=== PATIENT | male | born 1945 | race Caucasian/White ===

== ENCOUNTER → 2017-05-27 | Day surgery (SDC) | payer MEDICARE, OTHER ==
--- NOTE | 2017-05-26 13:34 | Diagnostic Imaging Report ---
PROCEDURE: Frontal and lateral views of the chest. COMPARISON: Patients [facility], , CHEST 2 VIEWS, 11/10/2014, 10:20. INDICATIONS: PRE OPERATIVE CHEST X-RAY FOR BLADDER CANCER, CYSTOSCOPY FINDINGS: Lines/tubes: Stable left upper chest Port-A-Cath.. Lungs: The lungs are well inflated and clear. There is no evidence of pneumonia or pulmonary edema.. No pulmonary nodules or masses. Pleura: There is no pleural effusion or pneumothorax. Heart and mediastinum: Cardiac silhouette is unremarkable. Pulmonary vasculature is normal. Bones: No acute bony abnormality. Stable degenerative changes in the thoracic spine. IMPRESSION: 1. No acute cardiopulmonary disease.. No evidence of metastatic disease in the thorax. Wilder Kapadia M.D. Dictated by: Wilder Kapadia M.D. on 05/26/2017 at 13:43 Electronically approved by: Wilder Kapadia M.D. on 05/26/2017 at 13:43
[~2017-05-27] MED LIST: AMLODIPINE BESY10 MG PO; AMLODIPINE-ATO1 EAC1; AMLODIPINE-BEN1 EACH PO; ASPIRIN LOW DOS81 MG PO; ASPIRIN325 MG PO; ASPIRIN81 MG PO; BELLADONNA/OPIUM 60 MG SUPP PR ONE; CLOPIDOGREL75 MG PO; DEXAMETHASONE SOD PHOS INJ 4 MG/ML VIAL ONE; EPHEDRINE SULFATE INJ 50 MG/10 ML SYR ONE; FENTANYL CITRATE/PF 100MCG/2 ML INJ ONE; GENTAMICIN 80MG/NS 100 ML 200 ML IV ONE; HCTZ; HYDROCHLOROTHIA25 MG; IBUPROFEN200 M1 PO; IOPAMIDOL 610MG/1ML 300 MG/ML VIAL IV ONE; LASIX20 MG PO; LIDOCAINE HCL 2% LOCAL INJ 5 ML SDV VIAL INJ ONE; METOPROLOL TART25 MG PO; MIDAZOLAM HCL 2 MG/2 ML VIAL ONE; MULITVITAMIN; ONDANSETRON HCL INJ 2 MG/ML VIAL ONE; PRADAXA150 MG PO; PROPOFOL IV EMULSION 10 MG/ML 20 ML VIAL ONE; SEVOFLURANE INHAL SOLN 250 ML PEN BTL ONE; Z.0.AMLODIPINE BESY1 PO; Z.0.CENTRUM COMPLE1 PO; Z.1.AMLODIPINE-BEN1 PO; ZIAC1 UDTAB GT
--- NOTE | 2017-07-09 04:21 | Operative Report ---
DATE OF PROCEDURE: May 27, 2017 PREOPERATIVE DIAGNOSES 1. Bladder cancer. 2. Microhematuria. POSTOPERATIVE DIAGNOSES 1. Bladder cancer. 2. Microhematuria. OPERATIONS PERFORMED 1. Cystourethroscopy with bilateral ureteral catheterization and retrograde ureteropyelography (separate procedure performed for the microhematuria). 2. Interpretation of retrograde ureteropyelography. 3. Cystourethroscopy with directed bladder biopsies (separate procedure performed to rule out any recurrent bladder cancer). ANESTHESIA: General. COMPLICATIONS: None. CLINICAL SUMMARY: Mike Ruano Jr., is a 71-year-old man with long-standing urological history. He has had bladder cancer. This has been resected. Patient has surveillance. He has had a TURP and has voided fairly well. The patient was known to have visual abnormality on surveillance cystoscopy, and is brought for management and evaluation. He is aware of the risks of bleeding, infection, injury to adjacent structures, need for additional procedures, and elected to proceed. OPERATIVE PROCEDURE IN DETAIL: Informed consent was verified. Mike Ruano Jr., was properly identified and taken to the operating room and placed on the cystoscopy table in the supine position. Anesthesia was uneventfully begun. The patient then carefully and gently repositioned in the dorsal lithotomy position with all pressure points well-padded. His genitalia were prepared and draped in the usual sterile fashion. The 22.5-Central African cystoscope sheath with visual obturator in place was atraumatically inserted in the patient's urethra. It was guided down the unremarkable urethra past a normal sphincteric region into the prostate bed, which was relatively open, status post transurethral resection. There was some nodular regrowth of prostatic tissue. Panendoscopy of the urinary bladder revealed mild erythema where we previously noted erythema on cystoscopy along the posterior bladder wall. An 8-Central African catheter was used to cannulate each ureter and retrograde ureteropyelograms were performed. Interpretation of retrograde ureteropyelography. Contrast was instilled in a retrograde fashion bilaterally. There were no tumors. No stones and no diverticula. Unobstructed drainage was observed bilaterally fluoroscopically. Directed-bladder biopsies were performed of the erythematous area, as well as on the regions within the bladder. Bugbee electrode was utilized to fulgurate the biopsy sites. The bladder was drained. The cystoscope was withdrawn. A belladonna and opium suppository was placed revealing a 35 g prostate that was diffusely firm, but it was more firm on the left than on the right side. No specific nodule was noted. The patient was then uneventfully reversed from anesthesia and taken to the recovery room in stable condition. There were no complications to the procedure. The patient tolerated the procedure well. Explicit postoperative instructions were given. Will follow the patient up in the office. Job#: [id number] RI cc:JIM ROSS MD
== END | disposition home or self-care (01) ==
LOC: OR 05:37
PROVIDERS: ATTEND Urology
DX: C67.9 Malignant neoplasm of bladder, unspecified (principal); I10 Essential (primary) hypertension; I48.91 Unspecified atrial fibrillation; C44.90 Unspecified malignant neoplasm of skin, unspecified; Z01.810 Encounter for preprocedural cardiovascular examination; Z01.818 Encounter for other preprocedural examination; Z87.891 Personal history of nicotine dependence
CPT/HCPCS: 52005; 52214; 71020; 74420; 88305; 93005; C1758; J1100; J1580; J2001; J2250; J2405; Q9967; 71046

== ENCOUNTER 2018-02-26 07:22 | Observation (INO) | payer MEDICARE, OTHER ==
[2018-02-25 15:11] LABS: BASOPHILS # (AUTO) 0.1 (0.0-0.1); BASOPHILS % 1.1 % (0.0-1.0); EOSINOPHILS # (AUTO) 0.2 (0.0-0.4); EOSINOPHILS % 2.9 % (0.0-6.0); HEMATOCRIT 44.1 % (38.2-49.6); HEMOGLOBIN 14.9 g/dL (14.0-18.0); LYMPHOCYTES # (AUTO) 1.9 (1.0-3.2); LYMPHOCYTES % 23.8 % (18.0-39.1); MEAN CORPUSCULAR HGB CONC 33.8 g/dL (31-35); MEAN CORPUSCULAR VOLUME 91.9 fL (81-99); MONOCYTES # (AUTO) 0.9 (0.2-0.8); MONOCYTES % 10.7 % (4.4-11.3); NEUTROPHILS # (AUTO) 4.9 (2.1-6.9); NEUTROPHILS % 60.9 % (38.7-80.0); PLATELET COUNT 234 x10e3/uL (140-360); RED CELL DISTRIBUTION WIDTH 12.8 % (11.7-14.4)
[2018-02-25 15:31] LABS: INR 0.99
[2018-02-25 15:38] LABS: ALBUMIN 3.9 g/dL (3.5-5.0); ALBUMIN/GLOBULIN RATIO 1.3 (0.8-2.0); ANION GAP 13.1 mmol/L (8-16); CALCIUM 9.9 mg/dL (8.4-10.2); CHOL/HDL RATIO 4.3 (3.9-4.7); CREATININE, SERUM 1.39 mg/dL (0.72-1.25); POTASSIUM 4.1 mmol/L (3.5-5.1)
[~2018-02-26] VITALS: Ht 172.7 cm; Wt 91.2 kg
[~2018-02-26 07:22] MED LIST changes: -BELLADONNA/OPIUM 60 MG SUPP PR ONE; -DEXAMETHASONE SOD PHOS INJ 4 MG/ML VIAL ONE; +ELIQUIS PO; -EPHEDRINE SULFATE INJ 50 MG/10 ML SYR ONE; -FENTANYL CITRATE/PF 100MCG/2 ML INJ ONE; -GENTAMICIN 80MG/NS 100 ML 200 ML IV ONE; -IOPAMIDOL 610MG/1ML 300 MG/ML VIAL IV ONE; -LIDOCAINE HCL 2% LOCAL INJ 5 ML SDV VIAL INJ ONE; -MIDAZOLAM HCL 2 MG/2 ML VIAL ONE; +NORCO 10-325 T1 EACH PO; -ONDANSETRON HCL INJ 2 MG/ML VIAL ONE; -PROPOFOL IV EMULSION 10 MG/ML 20 ML VIAL ONE; -SEVOFLURANE INHAL SOLN 250 ML PEN BTL ONE
--- OUTSIDE RECORDS SUMMARY | 2018-02-26 07:25 | XMS REPORT ---
Author [facility] Address Unknown Phone Unavailable Care Team Providers Care Tracing Lathe Set Up Operator Name Role Phone DENNIS OGLESBY Unavailable Unavailable Problems This patient has no known problems. Allergies, Adverse Reactions, Alerts This patient has no known allergies or adverse reactions. Medications This patient has no known medications. Results Test Description Test Time Test Comments Text Results Atomic Results Result Comments CHEST 2 VIEWS [place] [address] Patient Name: KACY RUBALCAVA JR MR #: [id number] : 1945 Age/Sex: 71/M Req #: [id number] Adm Physician: Ordered by: DENNIS OGLESBY MD Report #: [id number] Location: OR Room/Bed: Procedure: [id number] DX/CHEST 2 VIEWS Exam Date: 05/26/17 Exam Time: 1300 REPORT STATUS: Signed PROCEDURE: Frontal and lateral views of the chest. COMPARISON: [facility], DX, CHEST 2 VIEWS, 11/10/2014, 10:20. INDICATIONS: PRE OPERATIVE CHEST X-RAY FOR BLADDER CANCER, CYSTOSCOPY FINDINGS: Lines/tubes: Stable left upper chest Port-A-Cath.. Lungs: The lungs are well inflated and clear. There is no evidence of pneumonia or pulmonary edema.. No pulmonary nodules or masses. Pleura: There is no pleural effusion or pneumothorax. Heart and mediastinum: Cardiac silhouette is unremarkable. Pulmonary vasculature is normal. Bones: No acute bony abnormality. Stable degenerative changes in the thoracic spine. IMPRESSION: 1. No acute cardiopulmonary disease.. No evidence of metastatic disease in the thorax. Bubba Kapadia M.D. Dictated by: Bubba Kapadia M.D. on 05/26/2017 at 13:43 Electronically approved by: Bubba Kapadia M.D. on 05/26/2017 at 13:43 Dictated By: BUBBA KAPADIA MD [id number] Transcribed By: DARRION on 05/26/17 1343 COPY TO: DENNIS OGLESBY MD
[2018-02-26 07:30] VITALS: BP 110/103
[2018-02-26] MEDS ORDERED: DIPHENHYDRAMINE HCL 25 MG CAP ONE (08:04)
[2018-02-26] MEDS ORDERED: ALPRAZOLAM 0.5 MG TAB ONE (08:04)
[2018-02-26] MEDS ORDERED: SODIUM CHLORIDE 0.9% 1000ML 1,000 ML ONE (08:04)
[2018-02-26] MEDS ORDERED: LIDOCAINE HCL 2% LOCAL 20 ML VIAL ONE (09:53)
[2018-02-26] MEDS ORDERED: HEPARIN SOD/SOD CHLORIDE 2,000 ML ONE (09:54)
[2018-02-26] MEDS ORDERED: IOPAMIDOL 370 MG/ML 200 ML INFUS..BTL INJ ONE (09:54)
[2018-02-26] MEDS ORDERED: MIDAZOLAM HCL 2 MG/2 ML VIAL ONE (16:44)
[2018-02-26] MEDS ORDERED: FENTANYL CITRATE/PF 100MCG/2 ML INJ ONE (16:44)
--- NOTE | 2018-02-26 17:38 | Operative Report ---
DATE OF PROCEDURE: February 26, 2018 INDICATIONS 1. Coronary artery disease, angina, abnormal stress test. 2. Abnormal carotid duplex. PROCEDURES PERFORMED 1. Bilateral extracranial carotid angiograms. 2. Left heart catheterization, selective coronary angiography. 3. Percutaneous transluminal coronary angioplasty and drug-eluting stent placement to the proximal circumflex artery. 4. Deployment of right groin Mynx closure device. COMPLICATIONS: None. BLOOD LOSS: 5 mL. RECOMMENDATIONS 1. Staged atherectomy and stent placement to the right coronary artery. 2. Staged right internal carotid artery stent placement. 3. Distal embolic protection device. Access obtained in the right femoral artery. A 6-Sudanese sheath was placed. Bilateral extracranial carotid angiograms demonstrated 80% ostial stenosis of the right internal carotid artery with mild calcification and no evidence of ulceration. Left carotid artery stent was widely patent. Left main had mild disease. Left anterior descending artery was tortuous. Mid portion had a 60% to 70% stenosis, 2-mm vessel. Circumflex had proximal 80% stenosis. Right coronary artery was dominant, heavily calcified, with a mid 80% stenosis. A decision was made to intervene on the circumflex artery. The patient received 9,000 units of intravenous heparin, oral aspirin and Brilinta for anticoagulation. The left main was cannulated using a XB3.5, 6-Sudanese guiding catheter. A short Runthrough wire was advanced to the lesion for support. Predilatation with a 2-mm stent following which a single 2.5 x 12 mm Xience stent was deployed at 14 atmospheres. Excellent end result, less than 10% residual stenosis. No complications. SYLVAIN-3 flow. Right groin sheath was removed. Mynx closure device applied. Patient observed in the hospital overnight. Job#: [id number]
[2018-02-26 17:50] VITALS: BP 160/75
[2018-02-26] MEDS ORDERED: MORPHINE SULFATE INJ 4 MG/ML INJ IV PRN (18:15)
[2018-02-26 19:17] VITALS: BP 160/75
[2018-02-26 19:25] VITALS: BP 160/75
[2018-02-26 20:00] VITALS: BP 166/84
[2018-02-27] VITALS: BP 150/69
[2018-02-27 04:00] VITALS: BP 122/67
[2018-02-27 05:31] LABS: BASOPHILS # (AUTO) 0.1 (0.0-0.1); BASOPHILS % 0.9 % (0.0-1.0); EOSINOPHILS # (AUTO) 0.3 (0.0-0.4); EOSINOPHILS % 3.7 % (0.0-6.0); HEMATOCRIT 40.1 % (38.2-49.6); HEMOGLOBIN 13.6 g/dL (14.0-18.0); LYMPHOCYTES # (AUTO) 1.8 (1.0-3.2); LYMPHOCYTES % 19.2 % (18.0-39.1); MEAN CORPUSCULAR HGB CONC 33.9 g/dL (31-35); MEAN CORPUSCULAR VOLUME 91.3 fL (81-99); MONOCYTES % 10.7 % (4.4-11.3); NEUTROPHILS # (AUTO) 5.9 (2.1-6.9); NEUTROPHILS % 64.8 % (38.7-80.0); PLATELET COUNT 207 x10e3/uL (140-360); RED BLOOD COUNT 4.39 x10e6/uL (4.3-5.7); RED CELL DISTRIBUTION WIDTH 12.8 % (11.7-14.4)
[2018-02-27 05:49] LABS: BLOOD UREA NITROGEN 21 mg/dL (7-26); BUN/CREATININE RATIO 23 (6-25); CALCIUM 9.1 mg/dL (8.4-10.2); CARBON DIOXIDE 25 mmol/L (22-29); CHLORIDE 106 mmol/L (98-107); EST GLOMERULAR FILTRATION RATE > 60 ML/MIN (60-); GLUCOSE 129 mg/dL (74-118); SODIUM 141 mmol/L (136-145)
[2018-02-27 05:57] LABS: ANION GAP 13.1 mmol/L (8-16)
[2018-02-27 06:00] LABS: POTASSIUM 3.1 mmol/L (3.5-5.1)
[2018-02-27 08:18] VITALS: BP 122/63
[2018-02-27] MEDS ORDERED: ATORVASTATIN 40 MG TAB PO SCH (09:00)
[2018-02-27] MEDS ORDERED: HYDROCHLOROTHIAZIDE 25 MG TAB PO SCH (09:00)
[2018-02-27] MEDS ORDERED: APIXABAN 5 MG TABLET PO SCH (09:00)
[2018-02-27] MEDS ORDERED: AMLODIPINE BESYLATE 5 MG TAB PO SCH (09:00)
[2018-02-27] MEDS ORDERED: CLOPIDOGREL BISULFATE 75 MG TAB PO SCH (09:00)
[2018-02-27] MEDS ORDERED: ELIQUIS PO SCH (09:00)
[2018-02-27] MEDS ORDERED: NON-FORMULARY MEDICATION (Amlodipine Besylate/Benazepril (Amlodipine-Benazepril 5-20 Mg) 1 PO SCH (09:00)
[2018-02-27] MEDS ORDERED: ASPIRIN 81 MG CHEW TAB PO SCH (09:00)
[2018-02-27] MEDS ORDERED: ATORVASTATIN 20 MG TAB PO SCH ×2 (09:00→21:00)
[2018-02-27] MEDS ORDERED: FUROSEMIDE 20 MG TAB PO SCH (09:00)
[2018-02-27] MEDS ORDERED: BENAZEPRIL HCL 10 MG TAB PO SCH (09:00)
[2018-02-27] MEDS ORDERED: METOPROLOL TARTRATE 25 MG TAB PO SCH (09:00)
[2018-02-27 09:44] VITALS: BP 122/63
[2018-02-27] MEDS ORDERED: POTASSIUM CHLORIDE 20 MEQ TAB CR PO NR (10:30)
[2018-02-27] MEDS ORDERED: PLAVIX75 MG PO (11:11)
--- NOTE | 2018-02-27 12:02 | Progress Note ---
DATE: February 27, 2018 CARDIOLOGY PROGRESS NOTE SUBJECTIVE: Patient is without any complaints this morning. He is status post left circumflex stenting yesterday. Denies any chest pain, shortness of breath, palpitations, or dizziness. OBJECTIVE VITAL SIGNS: Temperature 96.8, pulse 72, respiratory rate 20, blood pressure 122/63, oxygen saturation 96% on room air. GENERAL: Alert and oriented x3, resting comfortably in bed, does not appear to be in any acute distress. LUNGS: Clear to auscultation throughout. No wheezing. No rhonchi or crackles. CARDIOVASCULAR: Irregular rate and rhythm. S1, S2 noted. ABDOMEN: Soft, nontender. EXTREMITIES: Lower extremities, 2+ pedal pulses. CARDIOVASCULAR MEDICATIONS 1. Plavix 75 mg p.o. daily. 2. Amlodipine 5 p.o. daily. 3. Benazepril 20 p.o. daily. 4. Apixaban 5 mg p.o. b.i.d. 5. Metoprolol 25 p.o. b.i.d. 6. Aspirin 81 p.o. daily. 7. Atorvastatin 40 p.o. h.s. 8. Lasix 20 p.o. daily. LABS: WBC 9.10, hemoglobin 13.6, hematocrit 40.1, platelets 207. Sodium 141, potassium 3.1, BUN 21, creatinine 0.90, GFR greater than 60, glucose 129. TELEMETRY: Atrial fibrillation. ASSESSMENT 1. Coronary artery disease with left circumflex stenting yesterday, awaiting right coronary artery staged intervention. 2. Carotid stenosis requiring right internal carotid artery stent to be done in the future. 3. Atrial fibrillation. 4. Hypertension. RECOMMENDATIONS: Continue the above-listed cardiac medications. Triple therapy with aspirin, Plavix, and Eliquis for the next 3 months. Monitor for any signs of bleeding closely. Okay to discharge patient today, with follow up in office in the next 2 to 3 weeks. Dictated by: Dorys Mendez NP Job#: [id number] AMANDA
[2018-04-12] MEDS ORDERED: AZO CRANBERRY1 EACH PO (10:55)
[2018-04-12] MEDS ORDERED: ASPIR 8181 MG PO (10:55)
[2018-04-12] MEDS ORDERED: POTASSIUM PO (10:55)
[2018-04-12] MEDS ORDERED: ATORVASTATIN CA20 MG PO (10:55)
== END 2018-02-27 11:29 | disposition home or self-care (01) ==
LOC: CATH LAB 07:22 → CATH LAB V 16:39 → MED/SURG 17:36
PROVIDERS: ADMIT Internal Medicine Interventional Cardiology; ATTEND Internal Medicine Interventional Cardiology
DX: I25.118 Atherosclerotic heart disease of native coronary artery with other forms of angina pectoris (principal); I48.1 Persistent atrial fibrillation; I65.23 Occlusion and stenosis of bilateral carotid arteries; I50.20 Unspecified systolic (congestive) heart failure; R94.39 Abnormal result of other cardiovascular function study
CPT/HCPCS: 36222; 93454; C9600; 36415; 80048; 80053; 80061; 85025; 85610; 92928; C1769; C1874; G0378; J2001; J2250; J2270; J7030; Q9967

== ENCOUNTER 2018-04-13 05:53 | Observation (INO) | payer MEDICARE, OTHER ==
[2018-04-12 11:20] LABS: BASOPHILS # (AUTO) 0.1 (0.0-0.1); BASOPHILS % 1.4 % (0.0-1.0); EOSINOPHILS # (AUTO) 0.4 (0.0-0.4); EOSINOPHILS % 4.7 % (0.0-6.0); HEMATOCRIT 42.5 % (38.2-49.6); LYMPHOCYTES # (AUTO) 1.7 (1.0-3.2); LYMPHOCYTES % 20.4 % (18.0-39.1); MEAN CORPUSCULAR HEMOGLOBIN 30.4 pg (28-32); MEAN CORPUSCULAR HGB CONC 32.9 g/dL (31-35); MEAN CORPUSCULAR VOLUME 92.4 fL (81-99); MONOCYTES # (AUTO) 0.9 (0.2-0.8); MONOCYTES % 10.4 % (4.4-11.3); NEUTROPHILS # (AUTO) 5.3 (2.1-6.9); NEUTROPHILS % 62.6 % (38.7-80.0); PLATELET COUNT 253 x10e3/uL (140-360); RED CELL DISTRIBUTION WIDTH 12.6 % (11.7-14.4)
[2018-04-12 11:46] LABS: ALANINE AMINOTRANSFERASE 27 IU/L (0-55); ALBUMIN 3.8 g/dL (3.5-5.0); ALBUMIN/GLOBULIN RATIO 1.2 (0.8-2.0); ALKALINE PHOSPHATASE 86 IU/L (40-150); ANION GAP 14.3 mmol/L (8-16); BLOOD UREA NITROGEN 21 mg/dL (7-26); BUN/CREATININE RATIO 19 (6-25); CALCIUM 9.7 mg/dL (8.4-10.2); CARBON DIOXIDE 28 mmol/L (22-29); CHLORIDE 102 mmol/L (98-107); CHOL/HDL RATIO 3.5 (3.9-4.7); CHOLESTEROL 119 MD/DL (0-199); CREATININE, SERUM 1.08 mg/dL (0.72-1.25); EST GLOMERULAR FILTRATION RATE > 60 ML/MIN (60-); GLUCOSE 179 mg/dL (74-118); HDL CHOLESTEROL 34 MG/DL (40-60); LDL CHOLESTEROL 56 MG/DL (60-130); POTASSIUM 4.3 mmol/L (3.5-5.1); SODIUM 140 mmol/L (136-145); TRIGLYCERIDES 144 MG/DL (0-149)
[2018-04-13] VITALS (32 sets, daily range): BP systolic 92–146; BP diastolic 45–92
[~2018-04-13] VITALS: Ht 172.7 cm; Wt 97.7 kg
[~2018-04-13 05:53] MED LIST changes: +ASPIR 8181 MG PO; +ATORVASTATIN CA20 MG PO; +AZO CRANBERRY1 EACH PO; +PLAVIX75 MG PO; +POTASSIUM PO
[2018-04-13] MEDS ORDERED: HEPARIN SOD (PORCINE) 1000 UNIT/ML 30ML ONE (07:02)
[2018-04-13] MEDS ORDERED: IOPAMIDOL 370 MG/ML 200 ML INFUS..BTL INJ ONE ×2 (07:03→09:29)
[2018-04-13] MEDS ORDERED: HEPARIN SOD/SOD CHLORIDE 2,000 ML ONE (07:03)
[2018-04-13] MEDS ORDERED: LIDOCAINE HCL 2% LOCAL 20 ML VIAL ONE (07:03)
[2018-04-13] MEDS ORDERED: SODIUM CHLORIDE 0.9% 1000ML 1,000 ML ONE ×3 (07:03→09:49)
[2018-04-13] MEDS ORDERED: NITROGLYCERIN/D5W 200 MCG/ML 250 ML ONE (07:03)
[2018-04-13] MEDS ORDERED: DIPHENHYDRAMINE HCL 25 MG CAP ONE (07:03)
[2018-04-13] MEDS ORDERED: ALPRAZOLAM 0.5 MG TAB ONE (07:03)
[2018-04-13] MEDS ORDERED: FENTANYL CITRATE/PF 100MCG/2 ML INJ ONE (07:10)
[2018-04-13] MEDS ORDERED: MIDAZOLAM HCL 2 MG/2 ML VIAL ONE (07:10)
[2018-04-13] MEDS ORDERED: BIVALRIUDIN 250 MG/VIAL VIAL IV ONE (08:18)
[2018-04-13] MEDS ORDERED: SODIUM CHLORIDE 0.9% 50ML 0 ML ONE (08:18)
[2018-04-13] MEDS ORDERED: VERAPAMIL HCL 2.5 MG/ML 2 ML VIAL ONE (09:02)
[2018-04-13] MEDS ORDERED: ATROPINE SULFATE 0.1 MG/ML 10ML SYR ONE (09:23)
[2018-04-13] MEDS ORDERED: EPTIFIBATIDE 10 ML ONE (09:25)
[2018-04-13] MEDS ORDERED: HEPARIN SOD/SOD CHLORIDE 1,000 ML ONE (09:26)
[2018-04-13] MEDS ORDERED: ASPIRIN 325 MG TAB ONE (09:32)
[2018-04-13] MEDS ORDERED: TICAGRELOR 90 MG TABLET ONE (09:32)
[2018-04-13] MEDS ORDERED: MORPHINE SULFATE INJ 4 MG/ML INJ ONE (10:47)
--- NOTE | 2018-04-13 10:47 | Operative Report ---
DATE OF PROCEDURE: April 13, 2018 INDICATIONS: Coronary artery disease. Abnormal stress test. Staged intervention, right coronary artery. PROCEDURES PERFORMED 1. Left heart catheterization, selective coronary angiography. 2. Percutaneous transluminal coronary angioplasty and drug-eluting stent placed in the proximal and mid right coronary artery. 3. Deployment of temporary transvenous pacemaker. COMPLICATIONS: None. RECOMMENDATIONS: Staged intervention in the right coronary artery. Access was obtained in the right femoral artery. A 6-Palauan sheath was placed. Access was obtained in the right femoral vein. A 6-Palauan sheath was placed. The patient received 10,000 units of intravenous heparin with an ACT of 334 along with Integrilin bolus only. Right coronary artery was cannulated using a JR4 6-Palauan guiding catheter. A temporary transvenous pacemaker was advanced to the right ventricular apex and pacing initiated. The lesion was crossed with a Runthrough wire. Multiple attempts at balloon passage through the critical 90% mid stenosis failed. Balloon angioplasty only was performed with 3 overlapping stents, 2.25 x 18 mm, 2.5 x 22 mm, and 3.0 x 8 mm, deployed from the middle to the proximal right coronary artery. Excellent end result. Residual 70% stenosis in the distal right coronary artery which could not be traversed due to extreme tortuosity and calcification. Sheath and guide were secured in place. Patient transferred to the floor in stable condition and was observed overnight. Job#: [id number]
--- NOTE | 2018-04-13 10:49 | NUR ---
XZB=[id number]. Will continue to monitor.
--- NOTE | 2018-04-13 10:50 | NUR ---
co lower back pain 10 of 10 medicate 4mg ivp in left iv site family remains at bedside . Stable vs No bleeding noted to rt femoral shealth site. Act still elevated Report to Esau Murphy(slab off mill tender recovery nurse)
[2018-04-13] MEDS ORDERED: VIT C PO PRN (15:45)
[2018-04-13] MEDS ORDERED: HYDROCODONE/APAP 7.5MG-325MG 1 EA TAB PO PRN (15:45)
[2018-04-13] MEDS ORDERED: [UNRECOGNIZED DRUG - OTHER] PO PRN (15:45)
[2018-04-13] MEDS ORDERED: MORPHINE SULFATE INJ 4 MG/ML INJ IV PRN (15:45)
[2018-04-13] MEDS ORDERED: CRANBERRY PO PRN (15:45)
[2018-04-13] MEDS: SODIUM CHLORIDE 0.9% 1000ML 1,000 ML IV SCH (16:30)
[2018-04-13] MEDS ORDERED: NON-FORMULARY MEDICATION ([Eliquis] 5 MG) PO SCH (17:00)
[2018-04-13] MEDS: APIXABAN 5 MG TABLET PO SCH (17:50)
[2018-04-13] MEDS: METOPROLOL TARTRATE 25 MG TAB PO SCH (17:50)
[2018-04-14] VITALS (8 sets, daily range): BP systolic 94–150; BP diastolic 47–78
[2018-04-14] MEDS: SODIUM CHLORIDE 0.9% 1000ML 1,000 ML IV SCH ×2 (05:10→16:00)
[2018-04-14 05:17] LABS: BASOPHILS # (AUTO) 0.1 (0.0-0.1); BASOPHILS % 0.8 % (0.0-1.0); EOSINOPHILS # (AUTO) 0.3 (0.0-0.4); EOSINOPHILS % 4.2 % (0.0-6.0); HEMATOCRIT 33.2 % (38.2-49.6); HEMOGLOBIN 10.9 g/dL (14.0-18.0); LYMPHOCYTES # (AUTO) 1.5 (1.0-3.2); LYMPHOCYTES % 20.4 % (18.0-39.1); MEAN CORPUSCULAR HEMOGLOBIN 30.1 pg (28-32); MEAN CORPUSCULAR HGB CONC 32.8 g/dL (31-35); MEAN CORPUSCULAR VOLUME 91.7 fL (81-99); MONOCYTES # (AUTO) 0.8 (0.2-0.8); MONOCYTES % 10.9 % (4.4-11.3); NEUTROPHILS # (AUTO) 4.7 (2.1-6.9); PLATELET COUNT 185 x10e3/uL (140-360); RED BLOOD COUNT 3.62 x10e6/uL (4.3-5.7); RED CELL DISTRIBUTION WIDTH 12.5 % (11.7-14.4)
[2018-04-14 05:44] LABS: BLOOD UREA NITROGEN 22 mg/dL (7-26); BUN/CREATININE RATIO 25 (6-25); CALCIUM 8.4 mg/dL (8.4-10.2); CARBON DIOXIDE 24 mmol/L (22-29); CHLORIDE 106 mmol/L (98-107); CREATININE, SERUM 0.88 mg/dL (0.72-1.25); EST GLOMERULAR FILTRATION RATE > 60 ML/MIN (60-); GLUCOSE 140 mg/dL (74-118); SODIUM 138 mmol/L (136-145)
--- NOTE | 2018-04-14 08:01 | NUR ---
pt resting in bed, no c/o pain or s/s distress. will continue to monitor.
[2018-04-14] MEDS ORDERED: ASPIRIN 81 MG CHEW TAB PO SCH (09:00)
[2018-04-14] MEDS ORDERED: NON-FORMULARY MEDICATION (Amlodipine Besylate/Benazepril (Amlodipine-Benazepril 5-20 Mg) 1 PO SCH (09:00)
[2018-04-14] MEDS ORDERED: ATORVASTATIN 20 MG TAB PO SCH (09:00)
[2018-04-14] MEDS: AMLODIPINE BESYLATE 5 MG TAB PO SCH (09:00)
[2018-04-14] MEDS: BENAZEPRIL HCL 10 MG TAB PO SCH (09:00)
[2018-04-14] MEDS: HYDROCHLOROTHIAZIDE 25 MG TAB PO SCH (09:00)
--- NOTE | 2018-04-14 10:24 | NUR ---
pt reported change in urine, dark tea/purple colored when reports was previously less tea-like and having more discomfort when urinating than usual. pt is established with dr streeter for prior bladder ca treatment, paged attending to notify and request consult.
[2018-04-14] MEDS ORDERED: POTASSIUM GLUCONATE PO SCH (10:30)
--- NOTE | 2018-04-14 10:44 | NUR ---
CASE MANAGEMENT INITIAL ASSESSMENT Rate Inserter to bedside to discuss plan of care with patient/family. CM/SW role and care transitions discussed. Anticipated discharge plan discussed along with duration of care. CM/SW discussed patients right to make decisions in care. CM/SW work hours given. Patient lives: IN OWN HOUSE WITH GIRLFRIEND Admit/Transfer: VIA ED FROM HOME POA/Emergency contact: RAHUL TOLBERTTON [phone] Current/Previous Home Health: NONE PCP/Follow-up Care: CODY PEREZ Current/Previous DME: NONE Other Services: NONE Employment Status: RETIRED Areas of Concerns: NONE Referral Needs: NONE Education Needs: NONE IMM/MATHIS given and signed (if applicable): MATHIS Goal for discharge: RETURN HOME INDEPENDENTLY CM/SW left business card at the bedside with contact information. Name and number was also written on the patients whiteboard. Patient verbalized understanding of discussion. CM will follow-up with ongoing discharge and transition of care needs.
[2018-04-14] MEDS: APIXABAN 5 MG TABLET PO SCH ×2 (12:43→17:29)
[2018-04-14] MEDS: CLOPIDOGREL BISULFATE 75 MG TAB PO SCH (12:43)
[2018-04-14] MEDS: METOPROLOL TARTRATE 25 MG TAB PO SCH ×2 (12:44→17:31)
--- NOTE | 2018-04-14 12:44 | NUR ---
pt was hypotensive this am and bloody urine concerns, held meds until clarified with md to give. dr pena on unit, per md hold all bp meds other than metoprolol. dr streeter consulted and orders placed.
--- NOTE | 2018-04-14 16:54 | Progress Note ---
DATE: CARDIOLOGY PROGRESS NOTE SUBJECTIVE: Patient feels better and well. Denies any chest pain or shortness of breath. Reports hematuria. He underwent percutaneous coronary intervention of the right coronary artery yesterday. OBJECTIVE VITAL SIGNS: Temperature is 96.5. Heart rate is 88. Respirations 16. Blood pressure is 129/67. Oxygen saturation 99% on room air. GENERAL: Well-appearing, in no apparent distress. CARDIOVASCULAR: Irregularly irregular. LUNGS: Clear to auscultation. ABDOMEN: Soft and nontender. EXTREMITIES: Groin side okay without hematoma. No edema. LABORATORY DATA: Hemoglobin 10.9. Creatinine 0.88. CARDIOVASCULAR MEDICATIONS: Reviewed. TELEMETRY MONITORING: Revealed atrial fibrillation. IMPRESSIONS 1. Coronary artery disease, status post percutaneous coronary intervention. 2. Atrial fibrillation. 3. Hematuria. 4. History of bladder cancer. 5. Hypertension. 6. Hyperlipidemia. RECOMMENDATIONS: Patient is feeling well and currently asymptomatic from a cardiovascular standpoint. Patient had hematuria early this morning and urology has been consulted. Unfortunately, we cannot stop the anticoagulation as he has fresh stents placed and a history of atrial fibrillation. Will discontinue the aspirin and continue Plavix and Eliquis alone. Will continue all other current cardiovascular medications and monitor him overnight. Will check a hemoglobin later on this evening. Job#: [id number]
[2018-04-14 17:01] LABS: HEMOGLOBIN 11.5 g/dL (14.0-18.0)
--- NOTE | 2018-04-14 19:19 | NUR ---
dr streeter aware of urine series clearing up to light brown currently and pt last HH. pt stable
--- NOTE | 2018-04-14 19:22 | NUR ---
Report received and walking rounds complete. Pt resting in bed and in no apparent distress. Pt cath site assessed, bloody gauze but no active bleeding and no abnormal bruising present. Pt as no pain complaints. All safety measures ensured, bed alarm on, and pt call nguyen near. Pt encouraged to use call nguyen for assistance.
[2018-04-14] MEDS ORDERED: ATORVASTATIN 40 MG TAB PO SCH (21:00)
[2018-04-15] VITALS: BP 117/56
[2018-04-15 04:00] VITALS: BP 99/56
--- NOTE | 2018-04-15 07:00 | NUR ---
rounded with the night coordinator nurse, patient aware of change, alert and oriented. Patient in no distress, call nguyen within reach
--- NOTE | 2018-04-15 07:40 | NUR ---
report given to oncoming nurse
[2018-04-15] MEDS: SODIUM CHLORIDE 0.9% 1000ML 1,000 ML IV SCH (07:50)
[2018-04-15 08:21] VITALS: BP 130/37
[2018-04-15 09:00] VITALS: BP 130/67
[2018-04-15] MEDS: CLOPIDOGREL BISULFATE 75 MG TAB PO SCH (09:57)
[2018-04-15] MEDS: HYDROCHLOROTHIAZIDE 25 MG TAB PO SCH (09:57)
[2018-04-15] MEDS: BENAZEPRIL HCL 10 MG TAB PO SCH (09:57)
[2018-04-15] MEDS: APIXABAN 5 MG TABLET PO SCH (09:57)
[2018-04-15] MEDS: METOPROLOL TARTRATE 25 MG TAB PO SCH (09:57)
[2018-04-15] MEDS: AMLODIPINE BESYLATE 5 MG TAB PO SCH (09:57)
[2018-04-15 12:20] VITALS: BP 116/62
--- NOTE | 2018-04-15 13:08 | NUR ---
discharge instructions given to patient, patient and verbalized understanding. IV discontinued, catheter in tact, small dressing applied. Patient wheeled from floor alert and oriented, to personal auto for to drive home.
--- NOTE | 2018-04-15 15:37 | Progress Note ---
DATE: CARDIOLOGY PROGRESS NOTE SUBJECTIVE: Patient feels better. Denies any shortness of breath or chest pain. His hematuria had improved. OBJECTIVE VITAL SIGNS: Temperature is 96.8, heart rate is 60, respirations are 18, blood pressure is 116/62, oxygen saturation 99% on room air. GENERAL: Well-appearing, well-built and no apparent distress. LUNGS: Mildly diminished breath sounds at bilateral bases. CARDIOVASCULAR: Irregularly irregular. ABDOMEN: Soft and nontender. EXTREMITIES: No edema. VASCULAR: Two plus pulses. Groin site appears okay with mild bruising. CARDIOVASCULAR MEDICATIONS: Reviewed. LABORATORY DATA: Reviewed. Hemoglobin 11.5. IMPRESSION 1. Coronary artery disease: Status post for percutaneous coronary intervention. 2. Atrial fibrillation. 3. Hematuria, resolved. 4. History of bladder cancer. 5. Hypertension. 6. Hyperlipidemia. RECOMMENDATIONS: The patient is currently asymptomatic and stable from a cardiovascular standpoint. His hematuria has resolved. Continue Eliquis and Plavix for his atrial fibrillation and coronary artery disease. Otherwise, continue all current cardiovascular medications and follow up as an outpatient. Job#: [id number] ID
== END 2018-04-15 13:10 | disposition home or self-care (01) ==
LOC: CATH LAB 05:53 → EDSTATUS 08:00 → PACU V 14:52 → IMCU 14:56
PROVIDERS: ADMIT Internal Medicine; ATTEND Internal Medicine
DX: I25.118 Atherosclerotic heart disease of native coronary artery with other forms of angina pectoris (principal); I48.1 Persistent atrial fibrillation; I65.23 Occlusion and stenosis of bilateral carotid arteries; I50.20 Unspecified systolic (congestive) heart failure; Z88.1 Allergy status to other antibiotic agents; Z88.0 Allergy status to penicillin; I11.0 Hypertensive heart disease with heart failure; Z85.51 Personal history of malignant neoplasm of bladder; Z85.828 Personal history of other malignant neoplasm of skin; F17.210 Nicotine dependence, cigarettes, uncomplicated; R31.9 Hematuria, unspecified; E78.5 Hyperlipidemia, unspecified; N40.0 Benign prostatic hyperplasia without lower urinary tract symptoms; R31.0 Gross hematuria; D64.9 Anemia, unspecified; N41.1 Chronic prostatitis; Z01.812 Encounter for preprocedural laboratory examination
CPT/HCPCS: 93454; C9600; 33210; 36415; 80048; 80053; 80061; 85014; 85018; 85025; 92928; 96360; 96361; C1725; C1769; C1874; G0378; J0583; J1327; J1644; J2001; J2250; J2270; J7030; Q9967

== ENCOUNTER 2018-06-02 09:47 | Observation (INO) | payer MEDICARE, OTHER ==
[~2018-06-02] VITALS: Ht 172.7 cm; Wt 92.5 kg
--- NOTE | 2018-06-02 10:40 | NUR ---
PT C/O MIDSTERNAL CHEST PAIN. INFORMED DR. MASCORRO, EKG DONE, PT PLACED ON TELE MONITOR BOX #[id number] AND CURRENTLY BEING MONITORED BY BOWSTRING MAKER. INFORMED ELENA DE GUZMAN PT'S PRIMARY NURSE OF THIS.
[2018-06-02] MEDS ORDERED: TETANUS/DIPHTHERIA TOX ADULT 0.5 ML SYR IM ONE (11:00)
[2018-06-02] MEDS ORDERED: MORPHINE SULFATE INJ 4 MG/ML INJ 1ML IV ONE (11:00)
--- NOTE | 2018-06-02 11:05 | NUR ---
Pt to radiology
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
[2018-06-02 12:13] LABS: BASOPHILS # (AUTO) 0.1 (0.0-0.1); BASOPHILS % 0.6 % (0.0-1.0); EOSINOPHILS # (AUTO) 0.1 (0.0-0.4); EOSINOPHILS % 0.9 % (0.0-6.0); HEMOGLOBIN 14.5 g/dL (14.0-18.0); LYMPHOCYTES % 7.6 % (18.0-39.1); MEAN CORPUSCULAR HEMOGLOBIN 29.2 pg (28-32); MEAN CORPUSCULAR VOLUME 88.7 fL (81-99); MONOCYTES # (AUTO) 0.7 (0.2-0.8); MONOCYTES % 5.4 % (4.4-11.3); NEUTROPHILS # (AUTO) 11.3 (2.1-6.9); NEUTROPHILS % 84.9 % (38.7-80.0); PLATELET COUNT 263 x10e3/uL (140-360); RED BLOOD COUNT 4.96 x10e6/uL (4.3-5.7); RED CELL DISTRIBUTION WIDTH 13.1 % (11.7-14.4)
[2018-06-02 12:24] LABS: INR 1.13; PROTHROMBIN TIME 15.5 seconds (11.9-14.5)
[2018-06-02 12:25] LABS: PARTIAL THROMBOPLASTIN TIME 29.6 seconds (23.8-35.5)
[2018-06-02 12:32] LABS: ALANINE AMINOTRANSFERASE 27 IU/L (0-55); ALBUMIN 4.1 g/dL (3.5-5.0); ALBUMIN/GLOBULIN RATIO 1.5 (0.8-2.0); ALKALINE PHOSPHATASE 79 IU/L (40-150); ANION GAP 14.6 mmol/L (8-16); BLOOD UREA NITROGEN 20 mg/dL (7-26); BUN/CREATININE RATIO 20 (6-25); CALCIUM 9.7 mg/dL (8.4-10.2); CARBON DIOXIDE 26 mmol/L (22-29); CHLORIDE 101 mmol/L (98-107); CREATINE KINASE 167 IU/L (30-200); CREATININE, SERUM 1.01 mg/dL (0.72-1.25); EST GLOMERULAR FILTRATION RATE > 60 ML/MIN (60-); GLUCOSE 207 mg/dL (74-118); MAGNESIUM 1.9 MG/DL (1.3-2.1); POTASSIUM 3.6 mmol/L (3.5-5.1); SODIUM 138 mmol/L (136-145)
--- NOTE | 2018-06-02 12:42 | NUR ---
told Zaida about critical lab lactic acid 25.2
[2018-06-02] MEDS ORDERED: SODIUM CHLORIDE 0.9% 1000ML 2,000 ML ONE (12:43)
--- NOTE | 2018-06-02 12:59 | NUR ---
1240- I was called to pt's bedside in the hallway by family. Pt stating he feels the same way he did in the OR, when his pressure and heart rate "fell out". Vital signs obtained. Pt is Buddy and Hypotensive. 1243- Pt moved to Rm 9 for close monitoring and observation. Pt placed in trendelenberg for low BP. Pt is pale, cool, and diaphoretic. A-fib is seen on the monitor with a rate in the 40s-50s. B/P remains low. Pt is AA&Ox3 and states he feels "bad sick". 1244- Second Lg bore 18g IV started in L upper arm by Vinny Godoy RN. Bolus of 1000mL started. 1245- Pt vitals are recovering to normal limits. Pt is more alert. Pt skin is warm and moist, color is returning to normal for pt. 1250- Vital Signs are WNL and pt bed is returned to a neutral level and HOB is raised to 30 degrees. Pt denies dizziness and "feeling sick" at this time. No acute distress, denies SOB, pt continues to complain of reproducable chest pain with palpation, AA&Ox3, YAO, pulses are strong and equal in all 4 extremities. Will continue to monitor.
[2018-06-02 13:43] LABS: B-TYPE NATRIURETIC PEPTIDE2 224.4 pg/mL (0-100)
--- NOTE | 2018-06-02 14:20 | NUR ---
Pt returned from CT Scan. No incidents while transporting or during radiology visit.
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
[2018-06-02] MEDS ORDERED: BACITRACIN ZINC 0.9GM TP ONE (16:30)
--- NOTE | 2018-06-02 16:45 | NUR ---
Skin tears and lacerations cleaned with betadine and saline solution per orders. Bacitracin and adaptic dressing applied to the lacerations and skin tears. Hand and wrist wrapped with kerlix and Coban dressing. Little and Ring Fingers of the L Hand were also cleaned and dressed with the same procedure. No distress is noted. Pt did not complain of pain or discomfort during the procedure. Family at the bedside, VSS. Will continue to monitor.
[2018-06-02] MEDS ORDERED: ONDANSETRON HCL INJ 2MG/ML 2ML 2 MG/ML VIAL IV PRN (17:00)
[2018-06-02] MEDS ORDERED: DEXTROSE 50% SYRINGE 50 ML IV PRN (17:00)
[2018-06-02] MEDS ORDERED: MORPHINE SULFATE 2 MG/ML SYR 1ML IV PRN (17:00)
[2018-06-02] MEDS ORDERED: MORPHINE SULFATE INJ 4 MG/ML INJ 1ML IV PRN (17:15)
[2018-06-02] MEDS ORDERED: SODIUM CHLORIDE 0.9% 50ML 50 ML ONE (19:29)
[2018-06-02] MEDS ORDERED: IOPAMIDOL 370 MG/ML 200 ML INFUS..BTL INJ ONE (19:29)
[2018-06-02 20:55] LABS: BILIRUBIN,URINE NEGATIVE (NEGATIVE); CLARITY,URINE SL CLOUDY (CLEAR); COLOR,URINE YELLOW (YELLOW); KETONES,URINE NEGATIVE (NEGATIVE); LEUKOCYTE ESTERASE ,URINE NEGATIVE (NEGATIVE); NITRITE,URINE NEGATIVE (NEGATIVE); PROTEIN,URINE DIPSTICK NEGATIVE (NEGATIVE); URINE UROBILINOGEN 0.2 mg/dL (0.2 - 1)
[2018-06-02] MEDS ORDERED: INSULIN REGULAR, HUMAN 100 UNIT/1 ML 3ML VIAL SQ SCH (21:00)
[2018-06-02 21:19] LABS: RBC,URINE >50 /HPF (0-5)
[2018-06-02 21:31] LABS: CREATINE KINASE MB 2.6 ng/mL (0-5.0)
[2018-06-02 22:25] VITALS: BP 154/74
[2018-06-02 22:30] VITALS: BP 154/74
[2018-06-02] MEDS: ACETAMINOPHEN/CODEINE 300MG - 30MG TAB PO PRN (22:30)
--- NOTE | 2018-06-02 22:54 | NUR ---
PATIENT RECEIVED FROM EMERGENCY DEPARTMENT PER WHEELCHAIR AT 2221. HE'S ALERT AND ORIENTED X4, HE DENIES SHORTNESS OF BREATH. HE C/O PAIN TO THE CHEST WITH PAIN SCORE #4, MEDICATED WITH TYLENOL #3 1TAB ORDERED. COBAN DRESSING DRY AND INTACT TO THE 4TH, 5TH DIGIT AND THE LEFT HAND, BRUISE OBSERVED TO THE LEFT EYE. PATIENT AMBULATED TO THE RESTROOM TO VOID, HE'S ORIENTED TO SURROUNDINGS AND HE PREFERS NOT TO HAVE THE BED ALARM ON. CALL LIGHT WITHIN EASY REACH, INSTRUCTED TO CALL FOR ASSISTANCE NEEDED.
[2018-06-03] VITALS (9 sets, daily range): BP systolic 108–180; BP diastolic 59–86
--- NOTE | 2018-06-03 01:44 | NUR ---
PATIENT IS SOUNDLY ASLEEP, NO RESPIRATORY DISTRESS OBSERVE. CALL LIGHT WITHIN EASY REACH, WILL CONTINUE TO CLOSELY MONITOR.
--- NOTE | 2018-06-03 04:32 | NUR ---
PATIENT IS SOUNDLY ASLEEP, NO RESPIRATORY DISTRESS OBSERVED. CALL LIGHT WITHIN EASY REACH, DRESSING REMAINS DRY AND INTACT TO THE LEFT HAND-4TH AND 5TH DIGIT.
--- NOTE | 2018-06-03 05:08 | NUR ---
PATIENT C/O PAIN TO THE CHEST WITH PAIN SCORE #5, MEDICATED WITH TYLENOL #3 ORDERED. THE PATIENT WENT TO THE RESTROOM TO VOID AND HE'S NOW BACK IN BED. WARM BLANKET GIVEN, CALL LIGHT WITHIN EASY REACH.
[2018-06-03] MEDS: ACETAMINOPHEN/CODEINE 300MG - 30MG TAB PO PRN ×3 (05:11→20:12)
[2018-06-03 05:43] LABS: BASOPHILS # (AUTO) 0.1 (0.0-0.1); BASOPHILS % 0.7 % (0.0-1.0); EOSINOPHILS # (AUTO) 0.3 (0.0-0.4); HEMATOCRIT 39.2 % (38.2-49.6); LYMPHOCYTES # (AUTO) 1.9 (1.0-3.2); LYMPHOCYTES % 22.2 % (18.0-39.1); MEAN CORPUSCULAR HEMOGLOBIN 29.3 pg (28-32); MEAN CORPUSCULAR HGB CONC 33.2 g/dL (31-35); MEAN CORPUSCULAR VOLUME 88.3 fL (81-99); MONOCYTES # (AUTO) 0.9 (0.2-0.8); MONOCYTES % 10.7 % (4.4-11.3); NEUTROPHILS # (AUTO) 5.3 (2.1-6.9); PLATELET COUNT 215 x10e3/uL (140-360); RED BLOOD COUNT 4.44 x10e6/uL (4.3-5.7)
--- NOTE | 2018-06-03 08:22 | NUR ---
Received patient this morning, alert and responsive, VSS, call to cardiology for consult, Dr. Main is contact center specialist and will see patient r/t chest contusion
[2018-06-03] MEDS ORDERED: ATORVASTATIN 20 MG TAB PO SCH (09:00)
[2018-06-03] MEDS: HYDROCHLOROTHIAZIDE 25 MG TAB PO SCH (10:07)
[2018-06-03] MEDS: CLOPIDOGREL BISULFATE 75 MG TAB PO SCH (10:07)
[2018-06-03] MEDS: METOPROLOL TARTRATE 25 MG TAB PO SCH ×2 (10:07→16:57)
--- NOTE | 2018-06-03 12:02 | NUR ---
Patient with occassional VT and rounds by cardiology and orders in place for ECHO
[2018-06-03 14:23] LABS: CREATINE KINASE MB 1.8 ng/mL (0-5.0)
--- NOTE | 2018-06-03 16:06 | NUR ---
Patient alert and responsive, BP elevated and cardiologists office called at this time for orders.
--- NOTE | 2018-06-03 16:29 | NUR ---
Patient alert and responsive, no respiratory distress, BP elevated and call to cardiologists office, call back and stated will have covering MD follow up
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
[2018-06-03] MEDS: AMLODIPINE BESYLATE 5 MG TAB PO SCH (20:12)
--- NOTE | 2018-06-03 20:15 | NUR ---
NO RESPIRATORY DISTRESS OBSERVED, PATIENT C/O PAIN TO THE CHEST WITH PAIN SCORE #4, MEDICATED WITH TYLENOL #3 1TAB ORDERED. CALL LIGHT WITHIN EASY REACH, PATIENT INSTRUCTED TO CALL FOR ASSISTANCE UPON GETTING OUT OF THE BED DUE TO SIDE EFFECT FROM THE MEDICATION.
--- NOTE | 2018-06-03 23:25 | NUR ---
PATIENT WATCHING TV, NO RESPIRATORY DISTRESS OBSERVED, HE DENIES PAIN AT THIS TIME.
[2018-06-04] VITALS: BP 126/82
[2018-06-04] MEDS: ACETAMINOPHEN/CODEINE 300MG - 30MG TAB PO PRN (03:42)
--- NOTE | 2018-06-04 03:43 | NUR ---
PATIENT WENT TO THE REST ROOM TO VOID AND HE'S BACK IN BED. HE C/O PAIN TO THE CHEST WITH PAIN SCORE #5, MEDICATED WITH TYLENOL #3 1TAB. CALL LIGHT WITHIN EASY REACH, INSTRUCTED TO CALL FOR ASSISTANCE NEEDED.
[2018-06-04 04:00] VITALS: BP 160/75
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
[2018-06-04] MEDS: HYDROCHLOROTHIAZIDE 25 MG TAB PO SCH (08:39)
[2018-06-04] MEDS: AMLODIPINE BESYLATE 5 MG TAB PO SCH (08:40)
[2018-06-04] MEDS: METOPROLOL TARTRATE 25 MG TAB PO SCH (08:40)
[2018-06-04] MEDS: CLOPIDOGREL BISULFATE 75 MG TAB PO SCH (08:40)
--- NOTE | 2018-06-04 08:41 | NUR ---
Received patient this morning, a/ox3, pleasant and in bed, c/o pains to chest muscles, medicated for pain, patient discharged and no prescriptions for pain, contact attending for prescriptions and waiting for response. Will possible send pharmacy information for electronic prescription if allowed.
[2018-06-04 08:43] VITALS: BP 109/66
[2018-06-04 08:49] VITALS: BP 109/66
[2018-06-04 08:53] VITALS: BP 109/66
[2018-06-04] MEDS ORDERED: APIXABAN 5 MG TABLET PO SCH (09:00)
--- NOTE | 2018-06-04 11:29 | NUR ---
Patient alert and responsive, VSS, medicated for pain and attending will send prescription to pharmacy for pain medications. IV line removed and cath tip in place, provided with discharge documentation and patient sent home
[2018-06-04] MEDS ORDERED: ATORVASTATIN 40 MG TAB PO SCH (21:00)
== END 2018-06-04 10:39 | disposition home or self-care (01) ==
LOC: ER 09:47 → ERHOLD 16:58 → IMCU 22:22
PROVIDERS: ADMIT Internal Medicine; ATTEND Internal Medicine
DX: S20.219A Contusion of unspecified front wall of thorax, initial encounter (principal); I25.10 Atherosclerotic heart disease of native coronary artery without angina pectoris; Z95.5 Presence of coronary angioplasty implant and graft; I10 Essential (primary) hypertension; I48.2 Chronic atrial fibrillation; Z79.01 Long term (current) use of anticoagulants; V43.52XA Car driver injured in collision with other type car in traffic accident, initial encounter; Y92.410 Unspecified street and highway as the place of occurrence of the external cause; S00.12XA Contusion of left eyelid and periocular area, initial encounter; S60.222A Contusion of left hand, initial encounter
CPT/HCPCS: 36415 ×2; 70450; 71045; 71275; 72125; 73130; 80053; 81001; 82550 ×2; 82553 ×2; 83605; 83735; 83880; 84484 ×2; 85025 ×2; 85610; 85730; 86850; 86900; 90714; 93005; 93306; 99284; G0378 ×3; J2270; J7030; Q9967

== ENCOUNTER → 2018-06-25 | Outpatient (CLI) | payer MEDICARE, OTHER ==
[~2018-06-25] MED LIST changes: +IOPAMIDOL 370 MG/ML 200 ML INFUS..BTL INJ ONE; +SODIUM CHLORIDE 0.9% 250ML 250 ML ONE
[2018-06-25 13:41] LABS: BLOOD UREA NITROGEN 18 mg/dL (7-26); BUN/CREATININE RATIO 20 (6-25); CREATININE, SERUM 0.88 mg/dL (0.72-1.25); EST GLOMERULAR FILTRATION RATE > 60 ML/MIN (60-)
--- NOTE | 2018-06-26 17:36 | Diagnostic Imaging Report ---
EXAM: CT Abdomen and Pelvis WITHOUT and WITH contrast INDICATION: ^GROSS HEMATURIA COMPARISON: None. TECHNIQUE: Abdomen and pelvis were scanned utilizing a multidetector helical scanner from the lung base to the pubic symphysis before and after administration of IV contrast. Coronal and sagittal reformations were obtained. CT Urogram protocol was performed. Scan was performed pre- and nephrogenic/excretory phase with a 10 minute split bolus in prone position. Additional 3-D reconstruction images were performed utilizing an off-line advance workstation by the technologist and supervised by the radiologist. IV CONTRAST: 150 mL of Isovue 370 ORAL CONTRAST: Water COMPLICATIONS: None RADIATION DOSE: Total DLP: 1345.70 mGy*cm Estimated effective dose: (DLP x 0.015 x size factor) mSv CTDIvol has been reviewed. It is below the limits set by the Radiation Protocol Committee (RPC). Dose modulation, iterative reconstruction, and/or weight based adjustment of the mA/kV was utilized to reduce the radiation dose to as low as reasonably achievable. FINDINGS: LINES and TUBES: None. LOWER THORAX: 5 mm groundglass/on the right middle lobe (series 3, image 1). Coronary artery calcifications. HEPATOBILIARY: No focal hepatic lesions. No biliary ductal dilation. GALLBLADDER: No radio-opaque stones or sludge. No wall thickening. SPLEEN: No splenomegaly. PANCREAS: No focal masses or ductal dilatation. ADRENALS: No adrenal nodules KIDNEYS/URETERS: Kidneys: Normal appearance bilaterally. No hydronephrosis or perinephric stranding. Cyst: 1.9 cm simple cyst in the interpolar region of the right kidney. 0.4 cm cyst in the superior pole of the right kidney. 1.5 cm simple cyst in the superior pole of the left kidney. Mass: None. Stones: 3 mm stone in the interpolar/inferior pole of the right kidney. Upper collecting systems: Suboptimal distention. No irregularities or filling defects. Ureters: Fully opacified and normal in appearance. Bladder: No mass or filling defects. GI TRACT: No abnormal distention, wall thickening, or evidence of bowel obstruction. Redundancy sigmoid colon. Descending colon is not retroperitoneum position and is more anterior and medial than the left kidney. Appendix is normal. Colonic diverticula without evidence of diverticulitis. PELVIC ORGANS/BLADDER: Mild pelvic floor prolapse. Wedge-shaped deformity in the prostate, likely from previous TURP. Prostate measures 4.5 cm in transverse dimension. LYMPH NODES: 1.5 x 2.3 cm right external iliac lymph node (series 6, image 141). VESSELS: There is severe atherosclerotic disease in the aorta and major arterial branches. PERITONEUM / RETROPERITONEUM: No free air or fluid. BONES: Bone island in the left pubic symphysis. Degenerative changes in the lumbar spine. SOFT TISSUES: Bilateral vasectomy clips. IMPRESSION: 1. Mild pelvic floor prolapse. 2. 0.3 cm right renal stone. 3. Bilateral renal cysts. 4. Indeterminate 1.5 x 2.3 cm enlarged right external iliac lymph node. Recommend further evaluation. Signed by: Dr. Charlie Schuler M.D. on 06/26/2018 5:32 PM
== END ==
LOC: CT 12:18
PROVIDERS: ATTEND Urology
DX: R31.0 Gross hematuria (principal)
CPT/HCPCS: 36415; 74178; 82565; 84520; J7050; Q9967

== ENCOUNTER → 2018-09-21 | Outpatient (CLI) | payer MEDICARE, OTHER ==
[~2018-09-21] MED LIST changes: -SODIUM CHLORIDE 0.9% 250ML 250 ML ONE; +SODIUM CHLORIDE 0.9% 50ML 50 ML ONE
[2018-09-21 15:34] LABS: CREATININE, SERUM 1.28 mg/dL (0.72-1.25)
--- NOTE | 2018-09-21 18:52 | Diagnostic Imaging Report ---
Exam: Thoracic CT with contrast. TECHNIQUE: CT scan of the chest with intravenous contrast, using standard protocol. The chest was scanned utilizing a multidetector helical scanner from the apex to the level of the adrenal glands. 100 mL Isovue-370 given per protocol.. Coronal and sagittal reformations were obtained. Total DLP: 607 mGy-cm COMPARISON: Chest CT dated 06/02/2018 INDICATION: Follow-up abnormality on chest CT from 06/02/2018 DISCUSSION: Lines/tubes: None. Lungs and Airways: Interval decreased size of left upper lobe micronodule which now appears more solid, previously groundglass, measuring 4 mm, previously 7 mm. Slight decrease in conspicuity of the groundglass right middle lobe nodule that is otherwise unchanged measuring approximately 7 mm (series 2, image 74). Stable scattered tiny calcified granulomas. Mild centrilobular emphysema. Scattered areas of atelectasis. Pleura: The pleural spaces are clear. Heart and mediastinum: The thyroid gland is normal. No significant mediastinal, hilar or axillary lymphadenopathy is seen. The heart and pericardium are within normal limits. Soft tissues: Small bilateral Bochdalek hernias. Abdomen: Small hiatal hernia. Limited views of the upper abdomen show no abnormality within the visualized liver, spleen, pancreas, or kidneys. The adrenal glands are normal. Bones: No acute bony abnormality. IMPRESSION: Decreased conspicuity of the groundglass nodules. Findings are reassuring however repeat CT in 9 months is recommended to document 1 year . Signed by: Jonathan Cooper MD on 09/21/2018 6:49 PM
== END ==
LOC: CT 14:42
PROVIDERS: ATTEND Internal Medicine
DX: J98.11 Atelectasis (principal); R91.8 Other nonspecific abnormal finding of lung field
CPT/HCPCS: 36415; 71260; 82565; 84520; Q9967

== ENCOUNTER → 2018-12-10 | Outpatient (CLI) | payer MEDICARE, OTHER ==
[~2018-12-10] MED LIST changes: -IOPAMIDOL 370 MG/ML 200 ML INFUS..BTL INJ ONE; -SODIUM CHLORIDE 0.9% 50ML 50 ML ONE
--- NOTE | 2018-12-10 13:48 | Diagnostic Imaging Report ---
CT of the chest, without contrast, 12/10/2018. History: Follow-up of pulmonary nodule. Comparison: 09/21/2018. Technique: Multidetector CT scanning of the chest was performed from the level of the apices to the upper abdomen without contrast. Coronal and sagittal multiplanar reformations were obtained. RADIATION DOSE: Total DLP: 284 mGy*cm Dose modulation, iterative reconstruction, and/or weight based adjustment of the mA/kV was utilized to reduce the radiation dose to as low as reasonably achievable. Discussion: Evaluation is limited without IV contrast. Chest: The heart, aorta, and pulmonary vessels are normal in size. Closure device is noted within the left atrium. There is opacification of the coronary arteries. Right subclavian dual-lead pacer is noted. Left subclavian Port-A-Cath is present. The thyroid is unremarkable. Subcentimeter nonspecific mediastinal lymph nodes are unchanged. Mild upper lobe centrilobular emphysema is present. 6 mm right middle lobe ground glass nodule is present. 5 mm solid nodule is present in the left upper lobe. Scattered atelectasis is again noted. Calcified granuloma is noted in the right upper lobe. There is no evidence of consolidation or pleural effusion. Limited evaluation of the upper abdomen shows normal adrenal glands. Bones and soft tissues: No acute abnormality. IMPRESSION: No significant difference in pulmonary nodules. No new findings. Otherwise unremarkable noncontrast CT of the chest. Signed by: Farrukh Ramsey on 12/10/2018 1:45 PM
== END ==
LOC: CT 11:56
PROVIDERS: ATTEND Internal Medicine
DX: R91.8 Other nonspecific abnormal finding of lung field (principal)
CPT/HCPCS: 71250

== ENCOUNTER → 2018-12-22 | Outpatient (CLI) | payer MEDICARE, OTHER ==
--- NOTE | 2018-12-22 12:07 | Diagnostic Imaging Report ---
Exam: KUB Clinical history: Renal stone Comparison: CT abdomen and pelvis, June 25, 2018 Findings: A 3 mm calcific density structures seen overlying the right renal shadow most compatible with nephrolithiasis. This is unchanged compared to the prior study. There is nonobstructive bowel gas pattern with retained feces in the colon. The regional osseous structures are unremarkable. Impression: 1. 3 mm right nephrolithiasis. Signed by: Dr. Maksim Hoyos MD on 12/22/2018 12:04 PM
== END ==
LOC: RAD 10:22
PROVIDERS: ATTEND Urology
DX: N20.0 Calculus of kidney (principal)
CPT/HCPCS: 74018

== ENCOUNTER → 2019-03-30 | Outpatient (CLI) | payer MEDICARE, OTHER ==
--- NOTE | 2019-03-30 11:50 | Diagnostic Imaging Report ---
Abdomen, 1 view. History: Renal calculus. Comparison: 12/22/2018. Findings: Air is scattered throughout nondilated small and large bowel. 3 mm calcific density previously described is not clearly seen on today's exam, but there is overlying retained stool in the region. The osseous structures are intact. IMPRESSION: Non-specific bowel gas pattern. No visible renal calculi. Signed by: Farrukh Ramsey on 03/30/2019 11:46 AM
== END ==
LOC: RAD 11:14
PROVIDERS: ATTEND Urology
DX: N20.0 Calculus of kidney (principal)
CPT/HCPCS: 74018